=== PATIENT | female | born 1975 | race Caucasian/White ===

== ENCOUNTER → 2016-03-10 | Outpatient (CLI) | payer MEDICAID ==
[~2016-03-10] MED LIST: ASPIRIN 81MG TA81 MG PO; FLEXERIL10 MG PO; KEFLEX 500MG.500 MG PO; MEDROL 4MG. DOSE4 MG PO; MOTRIN 100100 MG/5 M FT; MOTRIN 600MG.600 MG PO; MULTIVITAMIN1 SGL PO; NORCO 325 MG-101 TAB PO; TORADOL10 MG PO; ULTRAM50 MG PO
--- NOTE | 2016-03-10 11:41 | RADIOLOGY REPORT PS360 ---
KNEE-4 OR 5 VIEWS-LT HISTORY: LT KNEE PAIN COMPARISON: None FINDINGS: Technique: Weightbearing AP, lateral and Sapp views were performed as well as oblique. Bony Structures: No fracture or dislocation. No lytic or blastic change. Normal mineralization. Joint Space: Well-preserved. No significant arthritic changes evident. Soft Tissues: Unremarkable. No obvious joint effusion. No radio opaque foreign bodies or soft tissue gas. Other findings: No other significant findings IMPRESSION: Negative Knee
== END ==
LOC: RAD 10:15
DX: M25.562 Pain in left knee (principal)